=== PATIENT | female | born 1995 | race African-American/Black ===

== ENCOUNTER 2022-01-22 00:20 | Emergency (ER) | payer OTHER, SELFPAY ==
--- OUTSIDE RECORDS SUMMARY | 2022-01-22 00:24 | XMS REPORT | Continuity of Care Document ---
:1995 Author Organization [facility] t Address [address] [place] [address] Care Team Providers Name Role Phone Rebeca Bobo Primary Care Physician Visit, Nurse Attending Clinician Unavailable Kevin Martins Attending Clinician Kevin ESCALERA Attending Clinician Unavailable Doctor Unassigned, Name Attending Clinician Unavailable Nano CANO C Attending Clinician NANO C Attending Clinician Unavailable Rebeca GUAN Attending Clinician Unavailable INDUCTION Attending Clinician Unavailable Yudy SANCHEZ Attending Clinician Unavailable Enriqueta STOKES Attending Clinician Unavailable Payers Payer Name Policy Type Policy Number Effective Date Expiration Date Gurjit schwarz [place] [facility] [id number] 2020 HEALTH 00:00:00 MEDICAID PENDING PENDING 2020 00:00:00 FAMILY PLANNING [id number] 2014 2014 HUONG 0-100% 00:00:00 00:00:00 Advance Directives Directive Decision Effective Termination Comments Source Date Date Healthcare Agents on N/A [facility] ersity FileNameRelationProtestant Deaconess Hospitalealthcare [facility] Agent Medical RelationshipCommunicationCathy Branch [facility]ther[facility] [phone] (Mobile) Problems Condition Condition Condition Status Onset Resolution Last Treating Co mments Source Name Details Category Date Date Treatment Clinician Date Other Other Disease Active 2020-11 Univers general general 0-08 [place] of [place] and advice 00 Me dical for for Branch contracept contracept art art management management Loneliness Loneliness Disease Active U nivers 3-05 ity of 00:00: [place] 00 [facility] Obesity Obesity Disease Active Univers 807 ity of 00:00: [place] 00 [facility] Allergies, Adverse Reactions, Alerts Allergy Allergy Status Severity Reaction(s) Onset Inactive Treating Comm ents Source Name Type Date Date Clinician NO KNOWN Drug Active Univers ALLERGIE Class ity of S [facility] Social History Social Habit Start Date Stop Date Quantity Comments Source Exposure to Not sure [facility] SARS-CoV-2 [facility] (event) [place] Alcohol intake 2021-08-08 2021-08-08 0 /d University of 00:00:00 00:00:00 [facility] Tobacco use and 2019-06-07 2019-06-07 Never used Universit y of exposure 00:00:00 00:00:00 [facility] History of 2019-06-06 Cigarette Smoker Universi ty of tobacco use 00:00:00 [facility] Sex Ass[birth year] At [birth year] Universit y of 00:00:00 00:00:00 [facility] Smoking Status Start Date Stop Date Source Former smoker 2019-06-07 00:00:00 2019-06-07 00:00:00 Universi ty of [facility] Medications Ordered Filled Start Stop Current Ordering Indication Dosage Frequency Signature Comments Components Source Medication Medication Date Date Medication? Clinician (SIG) Name Name medroxyPROG 2020-11- No [id number] 150mg Univers ESTERone 0- ity of (DEPO-PROVE 14:30: 14:29 [place] RA) 00 :00 Medical injection Branch 150 mg medroxyPROG 2020-11- No [id number] 150mg 150 mg, Univers ESTERone 0- Intramuscu ity of (DEPO-PROVE 14:30: 14:29 lar, [place] RA) 00 :00 [id number], Medical injection 4 doses, Branch 150 mg First dose on Wed08/08/21 at 0930, Last dose on Wed04/17/22 at 0930, Routine medroxyPROG 2020-11- No [id number] 150mg Univers ESTERone 0- ity of (DEPO-PROVE 14:30: 14:29 [place] RA) 00 :00 Medical injection Branch 150 mg medroxyPROG 2020-11- No [id number] 150mg Univers ESTERone 07-10 ity of (DEPO-PROVE 14:30: 14:29 [place] RA) 00 :00 Medical injection Branch 150 mg medroxyPROG 2020-11- No [id number] 150mg 150 mg, Univers ESTERone 07-10 Intramuscu ity of (DEPO-PROVE 14:30: 14:29 lar, [place] RA) 00 :00 [id number], Medical injection 4 doses, Branch 150 mg First dose on Wed08/08/21 at 0930, Last dose on Wed04/17/22 at 0930, Routine 2020- No [id number] 1{tbl} Take 1 Univers vitamin 05-01 105 tablet by ity of w/FA tablet 00:00[place] daily. Medical Branch docusate 2020- No [id number] 240mg Take 1 Univers calcium 240 05-01 105 capsule by i ty of mg capsule 00:00: 00:00 mouth once [place] 00 :00 daily as Medical needed for Branch Constipati on. ferrous 2020- No [id number] 325mg Take 1 Univers sulfate 325 05-01 105 tablet by it y of mg (65 mg 00:00: 00:00 [place] iron[place] 00 :00 (two) Medical tablet times Branch daily. ibuprofen 2020- No [id number] 600mg Take 1 Univers 600 mg 05-01 105 tablet by ity of tablet 00:00: 00:00 mouth [place] 00 :00 every 6 Medical (six) Branch hours as needed (Pain). Take with food or milk. Immunizations Ordered Filled Immunization Date Status Comments [facility] e Immunization Name Name HPV9 2021-05-01 Completed University of 00:00:00 [facility] HPV9 2021-05-01 Completed University of 00:00:00 [facility] HPV9 2021-05-01 Completed University of 00:00:00 [facility] TDAP 2021-02-12 Completed University of 00:00:00 [facility] TDAP 2021-02-12 Completed University of 00:00:00 [facility] TDAP 2021-02-12 Completed University of 00:00:00 [facility] TDAP (ADACEL) 2019-11-23 Completed University of VACCINE 00:00:00 [facility] TDAP (ADACEL) 2019-11-23 Completed University of VACCINE 00:00:00 [facility] TDAP (ADACEL) 2019-11-23 Completed University of VACCINE 00:00:00 [facility] Influenza Virus 2019-08-02 Completed Universit y of Vaccine Quad .5 mL 00:00:00 [facility] IM 6+ MO Branch Influenza Virus 2019-08-02 Completed Universit y of Vaccine Quad .5 mL 00:00:00 [place] [facility] IM 6+ MO Branch Influenza Virus 2019-08-02 Completed Universit y of Vaccine Quad .5 mL 00:00:00 [facility] 6+ MO Branch HPV9 2018-05-16 Completed University of 00:00:00 [facility] Branch HPV9 2018-05-16 Completed University of 00:00:00 [facility] Branch HPV9 2018-05-16 Completed University of 00:00:00 [place] [facility] HPV9 2018-03-16 Completed University of 00:00:00 [facility] Branch HPV9 2018-03-16 Completed University of 00:00:00 [place] [facility] HPV9 2018-03-16 Completed University of 00:00:00 [facility] TDAP 2016-02-12 Completed University of 00:00:00 [facility] TDAP 2016-02-12 Completed University of 00:00:00 [facility] TDAP 2016-02-12 Completed University of 00:00:00 [facility] Vital Signs Vital Name Observation Time Observation Value Comments Source Systolic blood 2021-11-10 14:09:00 139 mm[Hg] Univer sity of pressure [facility] Diastolic blood 2021-11-10 14:09:00 80 mm[Hg] Unive rsity of pressure [facility] Heart rate 2021-11-10 14:09:00 75 /min [facility] Body temperature 2021-11-10 14:09:00 36.39 Maricarmen Univ ersity of [facility] Respiratory rate 2021-11-10 14:09:00 20 /min Univ ersity [facility] Body height 2021-11-10 14:09:00 165.[facility] cm [facility] Body weight 2021-11-10 14:09:00 109.272 kg Universi ty [facility] BMI 2021-11-10 14:09:00 40.09 kg/m2 Universi ty [facility] Systolic blood 2021-08-08 14:06:00 123 mm[Hg] Univer sity of pressure [facility] Diastolic blood 2021-08-08 14:06:00 78 mm[Hg] Unive rsity of [facility] Heart rate 2021-08-08 14:06:00 71 /min Universi ty [facility] Body temperature 2021-08-08 14:06:00 37 Maricarmen [facility] rate 2021-08-08 14:06:00 18 /min [facility] Body height 2021-08-08 14:06:00 165.1 cm Universi ty [facility] Body weight 2021-08-08 14:06:00 103.239 kg [facility] BMI 2021-08-08 14:06:00 37.87 kg/m2 [facility] Procedures Procedure Date / Time Performed Performing Clinician Sour e ASSIGNMENT OF BENEFITS 2021-11-10 13:54:00 Doctor Unassigned, No [facility] POCT TEST 2021-08-08 14:10:00 Elaine Mc[facility]ill [facility] Encoun[facility] Start End Encounter Admission Attending Care Care Encounter Source Date/Time Date/Time Type Type Clinicians Facility Department ID 2021-09-01 Outpatient [facility] [id number] [facility] [id number] Univers 16:43:41 [facility] 2022-02-02 2022-02-02 Outpatient R [facility] [id number] Univers 08:30:00 08:30:00 [id number] ity [facility] 2022-02-02 2022-02-02 Outpatient R [facility] [id number] Univers 08:30:00 08:30:00 [facility] 2021-11-10 2021-11-10 Nurse Visit, SylviaRm Nurse [facility] [[email or web address]] [id number] Univers 08:00:00 08:19:01 Visit Ute Escalera Kevin DIGITAL ASSISTANT [id number] Adriel as MATERNAL [phone] [facility] & [address] 2021-11-10 2021-11-10 Outpatient R [facility] [id number] Univers 08:00:00 08:00:00 [id number] ity [facility] 2021-11-10 2021-11-10 Outpatient R VALE [facility] [id number] Univers 08:00:00 08:00:00 UTE moya yudy [facility] 2021-11-10 2021-11-10 Orders Doctor OMAIRA [id number] Univers 00:00:00 00:00:00 Only Unassigned, JESSICA [id number] ity of [id number] Adriel as [phone] [address] 2021-08-08 2021-08-08 Office Nano [facility] [[email or web address]] [id number] Univers 09:00:02 09:45:16 Visit Elaine Small DIGITAL ASSISTANT [id number] [facility] [id number] Adriel as MATERNAL [phone] [facility] & CHILD [address] [place] [address] 2021-08-08 2021-08-08 Outpatient R NANO [facility] [id number] Univers 09:15:00 09:15:00 ELAINE titus [facility] 2021-08-08 2021-08-08 Outpatient R [facility] [id number] Univers 09:00:00 09:00:00 [id number] ity [facility] 2021-08-08 2021-08-08 Outpatient R [facility] [id number] Univers 09:00:00 09:00:00 ity [facility] 2021-08-04 2021-08-04 Outpatient R [facility] [id number] Univers 14:00:00 14:00:00 [id number] ity [facility] 2021-08-04 2021-08-04 Outpatient R FREIDA, [facility] [id number] Univers 14:00:00 14:00:00 ZANDRA ittracy [facility] 2021-06-17 2021-06-17 Outpatient R VALE, [facility] [id number] Univers 17:30:00 17:30:00 UTE [id number] ity o [facility] 2021-06-17 2021-06-17 Outpatient R VALE, [facility] [id number] Univers 17:30:00 17:30:00 UTE marichuyy o [facility] 2021-06-11 2021-06-11 Outpatient R VALE, [facility] [id number] Univers 08:30:00 08:30:00 UTE [id number] ity o [facility] 2021-06-11 2021-06-11 Outpatient R VALE, [facility] [id number] Univers 08:30:00 08:30:00 GREGGWALEJOHNNY keila o [facility] 2021-05-21 2021-05-21 Outpatient R VALE, [facility] [id number] Univers 11:30:00 11:30:00 MARY JANEJOHNNY y o [facility] 2021-04-30 2021-04-30 Outpatient INDUCTION, [facility] [id number] Univers 07:00:00 07:00:00 OMAIRA [id number] [facility] 2021-04-24 2021-04-24 Outpatient R AKINSIPE, [facility] [id number] Univers 08:00:00 08:00:00 ELAINE [id number] ity o [facility] 2021-04-24 2021-04-24 Outpatient R AKINSIPE, [facility] [id number] Univers 08:00:00 08:00:00 ELAINE ity o [facility] 2021-04-17 2021-04-17 Outpatient R AKINSIPE, [facility] [id number] Univers 08:00:00 08:00:00 ELAINE [id number] ity o [facility] 2021-04-172021-04-17 Outpatient R AKINSIPE, [facility] [id number] Univers 08:00:00 08:00:00 ELAINE ity o [facility] 2021-04-10 2021-04-10 Outpatient R AKINSIPE, [facility] [id number] Univers 08:00:00 08:00:00 ELAINE [id number] ity o [facility] 2021-04-10 2021-04-10 Outpatient R AKINSIPE, [facility] [id number] Univers 08:00:00 08:00:00 ELAINE ity o [facility] 2021-04-02 2021-04-02 Outpatient R AKINSIPE, [facility] [id number] Univers 09:30:00 09:30:00 ELAINE [id number] ity o [facility] 2021-04-02 2021-04-02 Outpatient R AKINSIPE, [facility] [id number] Univers 09:30:00 09:30:00 ELAINE ity o [facility] 2021-03-26 2021-03-26 Outpatient R AKINSIPE, [facility] [id number] Univers 11:00:00 11:00:00 ELAINE [id number] ity o [facility] 2021-03-26 2021-03-26 Outpatient R AKINSIPE, [facility] [id number] Univers 11:00:00 11:00:00 ELAINE ity o [facility] 2021-03-12 2021-03-12 Outpatient R AKINSIPE, [facility] [id number] Univers 11:00:00 11:00:00 ELAINE [id number] ity o [facility] 2021-03-12 2021-03-12 Outpatient R AKINSIPE, [facility] [id number] Univers 11:00:00 11:00:00 ELAINE ity o [facility] 2021-03-12 2021-03-12 Outpatient R AKINSIPE, [facility] [id number] Univers 11:00:00 11:00:00 ELAINE ity o [facility] 2021-02-26 2021-02-26 Outpatient R AKINSIPE, [facility] [id number] Univers 11:00:00 11:00:00 ELAINE [id number] ity o f [facility] 2021-02-26 2021-02-26 Outpatient R AKINSIPE, [facility] [id number] Univers 11:00:00 11:00:00 ELANIE ity o f [facility] 2021-02-12 2021-02-12 Outpatient R AKINSIPE, [facility] [id number] Univers 13:00:00 13:00:00 ELAINE [id number] ity o [facility] 2021-02-12 2021-02-12 Outpatient R AKINSIPE, [facility] [id number] Univers 13:00:00 13:00:00 ELAINE ity o f [facility] 2021-01-30 2021-01-30 Outpatient R AKINSIPE, [facility] [id number] Univers 12:45:00 12:45:00 ELAINE [id number] ity o [facility] 2021-01-30 2021-01-30 Outpatient R AKINSIPE, [facility] [id number] Univers 12:45:00 12:45:00 ELAINE ity o [facility] 2021-01-02 2021-01-02 Outpatient R AKINSIPE, [facility] [id number] Univers 08:00:00 08:00:00 ELAINE [id number] ity o [facility] 2021-01-02 2021-01-02 Outpatient R AKINSIPE, [facility] [id number] Univers 08:00:00 08:00:00 ELAINE ity o [facility] 2020-12-12 2020-12-12 Outpatient R [facility] [id number] Univers 08:30:00 08:30:00 [id number] [facility] 2020-12-12 2020-12-12 Outpatient P [facility] [id number] Univers 08:30:00 08:30:00 [facility] 2020-12-05 2020-12-05 Outpatient R AKINSIPE, [facility] [id number] Univers 08:00:00 08:00:00 ELAINE [id number] ity o f [facility] 2020-12-05 2020-12-05 Outpatient R AKINSIPE, [facility] [id number] Univers 08:00:00 08:00:00 ELAINE ity o f [facility] 2020-11-07 2020-11-07 Outpatient R AKINSIPE, [facility] [id number] Univers 08:00:00 08:00:00 ELAINE [id number] ity o f [facility] 2020-11-07 2020-11-07 Outpatient R AKINSIPE, [facility] [id number] Univers 08:00:00 08:00:00 ELAINE ity o f [facility] 2020-10-21 2020-10-21 Outpatient R [facility] [id number] Univers 08:00:00 08:00:00 [id number] ity [facility] 2020-10-21 2020-10-21 Outpatient P [facility] [id number] Univers 08:00:00 08:00:00 ity of [facility] 2020-10-10 2020-10-10 Outpatient R AKINSIPE, [facility] [id number] Univers 08:00:00 08:00:00 ELAINE ity o f [facility] 2020-10-10 2020-10-10 Outpatient R AKINSIPE, [facility] [id number] Univers 08:00:00 08:00:00 ELAINE ity o f [facility] 2020-09-12 2020-09-12 Outpatient R AKINSIPE, [facility] [id number] Univers 10:00:00 10:00:00 ELAINE ity o f [facility] 2020-09-12 2020-09-12 Outpatient R [facility] [id number] Univers 09:30:00 09:30:00 [id number] ity [facility] 2020-07-26 2020-07-26 Outpatient R AKINSIPE, [facility] [id number] Univers 09:00:00 09:00:00 ELAINE [id number] marichuyy o f [facility] 2020-07-26 2020-07-26 Outpatient R AKINSIPE, [facility] [id number] Univers 09:00:00 09:00:00 ELAINE ity o f [facility] 2020-03-20 2020-03-20 Outpatient R AKINSIPE, [facility] [id number] Univers 09:45:00 09:45:00 ELAINE [id number] ity o f [facility] 2020-03-20 2020-03-20 Outpatient R AKINSIPE, [facility] [id number] Univers 09:45:00 09:45:00 ELAINE ity o f [facility] 2020-02-26 2020-02-26 Outpatient R AKINSIPE, [facility] [id number] Univers 12:45:00 12:45:00 ELAINE [id number] ity o f [facility] 2020-02-26 2020-02-26 Outpatient R AKINSIPE, [facility] [id number] Univers 12:45:00 12:45:00 ELAINE ity o f [facility] 2020-02-08 2020-02-08 Outpatient R AKINSIPE, [facility] [id number] Univers 10:00:00 10:00:00 ELAINE ity o f [facility] 2020-01-26 2020-01-26 Outpatient R FREIDA, [facility] [id number] Univers 10:15:00 10:15:00 ZANDRA [id number] [facility] 2020-01-26 2020-01-26 Outpatient R FREIDA, [facility] [id number] Univers 10:15:00 10:15:00 ZANDRA pedraza [facility] 2020-01-25 2020-01-25 Outpatient Kevin GUAN, [facility] [id number] Univers 08:00:00 08:00:00 ZANDRA [id number] ity [facility] 2020-01-25 2020-01-25 Outpatient Kevin GUAN, [facility] [id number] Univers 08:00:00 08:00:00 ZANDRA pedraza [facility] 2020-01-18 2020-01-18 Outpatient Kevin GUAN, [facility] [id number] Univers 10:30:00 10:30:00 ZANDRA [id number] [facility] 2020-01-18 2020-01-18 Outpatient Kevin GUAN, [facility] [id number] Univers 10:30:00 10:30:00 ZANDRA [facility] 2020-01-11 2020-01-11 Outpatient FREIDA [facility] [id number] Univers 08:15:00 08:15:00 ZANDRA [id number] [facility] 2020-01-11 2020-01-11 [facility] [id number] Univers 08:15:00 08:15:00 ZANDRA [facility] 2020-01-04 2020-01-04 [facility] [id number] Univers 07:45:00 07:45:00 ZANDRA [facility] 2019-12-26 2019-12-26 Outpatient P LAURA [facility] [id number] Univers 09:45:00 09:45:00 TAISHA [facility] 2014-11-29 2014-11-29 Outpatient R DIVYA [facility] [id number] Univers 13:30:00 13:32:59 SAILAJA [facility] Results Test Description Test Time Test Comments Results Result Comments Source POCT TEST 2021-08-08 14:10:00 Test Item Value Reference Range Interpretation Comme nts POCT PREG (test code = 1605) Negative On board controls acceptable with C Line (test code = 3574) Yes POCT PREG LOT # (test code = 3575) POCT PREG TEST DATE (test code = 3576) [facility]
[2022-01-22] MEDS ORDERED: METHYLPREDNISOLONE 125 MG INJ ONE (01:13)
[2022-01-22] MEDS ORDERED: DIPHENHYDRAMINE 50 MG/ML VIAL ONE (01:14)
[2022-01-22] MEDS ORDERED: NA CHLORIDE 0.9% 1,000 ML ONE (01:14)
[2022-01-22] MEDS ORDERED: FAMOTIDINE 20 MG/2 ML VIAL IV ONE (01:14)
[2022-01-22] MEDS ORDERED: predniSONE 20 MG TAB ONE (01:14)
--- NOTE | 2022-01-22 02:26 | EDPHYS ---
Physician Documentation [facility] Name: Lisa Joe Age: 26 yrs Sex: Female : 1995 Arrival Date: 01/22/2022 Time: 00:26 Bed 20 Private MD: ED Physician Jr Hanks HPI: 01/22 02:20 This 26 yrs old Black Female presents to ER via Ambulatory with complaints of Hives. stalin 02:20 The patient's rash thought to be caused by an unknown cause. The rash is located on the stalin body diffusely. The rash can be described as raised, urticarial. Onset: The symptoms/episode began/occurred 6 hour(s) ago. Associated signs and symptoms: Pertinent positives: burning sensation, itching. Severity of symptoms: At their worst the symptoms were mild moderate in the emergency department the symptoms are unchanged. Treatment given at home: Benadryl. The patient has experienced similar episodes in the past, a few times. 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 - Social history:: Smoking status: Patient denies any tobacco usage or history of. - Family history:: not pertinent. ROS: 02:20 Constitutional: Negative for fever, chills, and weight loss, Eyes: Negative for injury, stalin pain, redness, and discharge, ENT: Negative for injury, pain, and discharge, Neck: Negative for injury, pain, and swelling, Cardiovascular: Negative for chest pain, palpitations, and edema, Respiratory: Negative for shortness of breath, cough, wheezing, and pleuritic chest pain, Abdomen/GI: Negative for abdominal pain, nausea, vomiting, diarrhea, and constipation, Back: Negative for injury and pain, : Negative for injury, bleeding, discharge, and swelling, MS/Extremity: Negative for injury and deformity, Neuro: Negative for headache, weakness, numbness, tingling, and seizure, Psych: Negative for depression, anxiety, suicide ideation, homicidal ideation, and hallucinations, Allergy/Immunology: Negative for hives, rash, and allergies, Endocrine: Negative for neck swelling, polydipsia, polyuria, polyphagia, and marked weight changes, Hematologic/Lymphatic: Negative for swollen nodes, abnormal bleeding, and unusual bruising. 02:20 Skin: Positive for rash, diffusely. Exam: 02:20 Constitutional: This is a well developed, well nourished patient who is awake, alert, stalin and in no acute distress. Head/Face: Normocephalic, atraumatic. Eyes: Pupils equal round and reactive to light, extra-ocular motions intact. Lids and lashes normal. Conjunctiva and sclera are non-icteric and not injected. Cornea within normal limits. Periorbital areas with no swelling, redness, or edema. ENT: Nares patent. No nasal discharge, no septal abnormalities noted. Tympanic membranes are normal and external auditory canals are clear. Oropharynx with no redness, swelling, or masses, exudates, or evidence of obstruction, uvula midline. Mucous membranes moist. Neck: Trachea midline, no thyromegaly or masses palpated, and no cervical lymphadenopathy. Supple, full range of motion without nuchal rigidity, or vertebral point tenderness. No Meningismus. Chest/axilla: Normal chest wall appearance and motion. Nontender with no deformity. No lesions are appreciated. Cardiovascular: Regular rate and rhythm with a normal S1 and S2. No gallops, murmurs, or rubs. Normal PMI, no JVD. No pulse deficits. Respiratory: Lungs have equal breath sounds bilaterally, clear to auscultation and percussion. No rales, rhonchi or wheezes noted. No increased work of breathing, no retractions or nasal flaring. Abdomen/GI: Soft, non-tender, with normal bowel sounds. No distension or tympany. No guarding or rebound. No evidence of tenderness throughout. Back: No spinal tenderness. No costovertebral tenderness. Full range of motion. Female : Normal external genitalia. MS/ Extremity: Pulses equal, no cyanosis. Neurovascular intact. Full, normal range of motion. Neuro: Awake and alert, GCS 15, oriented to person, place, time, and situation. Cranial nerves II-XII grossly intact. Motor strength 5/5 in all extremities. Sensory grossly intact. Cerebellar exam normal. Normal gait. Psych: Awake, alert, with orientation to person, place and time. Behavior, mood, and affect are within normal limits. 02:20 Skin: Appearance: Color: normal in color, Temperature: normal temperature, Moisture: normal moisture, petechiae, not noted, ecchymosis, not noted, flushing, not noted, abscess, not appreciated, cellulitis, is not appreciated, induration, is not appreciated, injury, is not appreciated, lesion(s), noted, and can be described as nontender, raised, rash can be described as urticarial, Turgor: is excellent. Vital Signs: 00:36 BP 132 / 67; Pulse 81; Resp 18; Temp 97.9(TE); Pulse Ox 100% on R/A; Weight 108.86 kg lp1 (R); Height 5 ft. 6 in. (167.64 cm); 00:36 Body Mass Index 38.74 (108.86 kg, 167.64 cm) lp1 MDM: 00:58 Patient medically screened. [facility] 02:24 Differential diagnosis: allergic reaction. Data reviewed: vital signs, nurses notes. stalin Data interpreted: hall monitor: rate is 81 beats/min, rhythm is regular, Pulse oximetry: on room air is 100 %. Test interpretation: by ED physician or midlevel provider: ECG, plain radiologic studies. Counseling: I had a detailed discussion with the patient and/or guardian regarding: the historical points, exam findings, and any diagnostic results supporting the discharge/admit diagnosis, lab results, radiology results, the need for outpatient follow up, for definitive care, a family practitioner. Administered Medications: 01:25 Drug: SOLU-Medrol (methylPrednisoLONE) 125 mg Route: IVP; Rate: 62.5 mg/min; Infused tk1 Over: 2 mins; Site: right antecubital; 02:00 Follow up: Response: Marked relief of symptoms tk1 01:26 Drug: Pepcid (famotidine) 40 mg Route: IVP; Rate: 20 mg/min; Infused Over: 2 mins; tk1 Site: right antecubital; 02:00 Follow up: Response: Marked relief of symptoms tk1 01:26 Drug: predniSONE 60 mg Route: PO; tk1 02:00 Follow up: Response: Marked relief of symptoms tk1 01:27 Drug: NS 0.9% 1000 ml Route: IV; Rate: 1 bolus; Infused Over: 1 hrs; Site: right tk1 antecubital; Delivery: Primary tubing; 02:30 Follow up: IV Status: Completed infusion; IV Intake: 1000ml tk1 03:46 Follow up: Response: No adverse reaction tk1 01:27 Drug: Benadryl (diphenhydrAMINE) 50 mg Route: IVP; Rate: 25 mg/min; Infused Over: 2 tk1 mins; Site: right antecubital; 02:00 Follow up: Response: Marked relief of symptoms tk1 Disposition Summary: 01/22/22 02:25 Discharge Ordered Location: Home [facility] Problem: new [facility] Symptoms: have improved [facility] Condition: Stable stalin Diagnosis - Urticaria, unspecified stalin Followup: [facility] - With: Private Physician - When: 1 - 2 days - Reason: Recheck today's complaints, Continuance of care, Re-evaluation by your physician Discharge Instructions: - Discharge Summary Sheet [facility] - Allergies, Adult stalin - Hives stalin - Angioedema [facility] - Rash, Adult, [id number] [facility] - Angioedema, [id number] [facility] Forms: - Medication Reconciliation Form [facility] - Thank You Letter [facility] - Antibiotic Education [facility] - Prescription Opioid Use [facility] Prescriptions: - Benadryl 25 mg Oral Capsule - take 2 capsule by ORAL route every 6 hours As needed; 36 tablet; Refills: 0, [facility] Product Selection Permitted - Pepcid 20 mg Oral Tablet - take 1 tablet by ORAL route every 12 hours for 10 days; 20 tablet; Refills: 0, [facility] Product Selection Permitted - Prednisone 20 mg Oral Tablet - take 2 tablets by ORAL route once daily for 5 days; 10 tablet; Refills: 0, [facility] Product Selection Permitted Signatures: Jr Hanks MD MD cha Pena, Laura RN RN lp1 Tonia Fountain tk1
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
[2022-01-22 04:31] VITALS: BP 132/67; TEMP 97.9; O2SAT 100
== END 2022-01-22 03:43 | disposition home or self-care (01) ==
LOC: ER 00:20
DX: L50.9 Urticaria, unspecified (principal)
CPT/HCPCS: 96361; 96374; 96375; 99283; J1200; J2930; J7030; J7512